=== PATIENT | female | born 1970 | race African-American/Black ===

== ENCOUNTER 2017-04-22 13:06 | Emergency (ER) | payer OTHER ==
[2017-04-22 13:08] VITALS: BP 236/111; PULSE 88; RESP 16; TEMP 97.9; O2SAT 95
--- NOTE | 2017-04-22 13:35 | PD ---
HPI Chief Complaint: GI Complaint Time Seen by Provider: 13:35 Travel History International Travel<30 days: No Contact w/Intl Traveler<30days: No Traveled to known affect area: No History of Present Illness HPI 46-year-old female of hypertension and hyperlipidemia presents to the emergency department for evaluation of constipation. The patient states that she has not had a bowel movement in about one week. States that for the last 3 days she feels as though she has a hard stool in her rectum and is complaining of pain. States that she has tried to have a bowel movement and when she wipes she does see stool on the toilet paper however is unable to fully pass the stool. States that she has tried at home remedies without resolution. The patient states that she typically has 2 bowel movements per week but this is the longest she is gone without a bowel movement. States she's never had constipation like this before. States that she began taking Lortab for knee pain about 2-3 months ago and was unaware that it caused constipation. She denies any fever, chills, nausea, vomiting, abdominal pain. No other complaints. PFSH Past Medical History Narrative Medical Hypertension Hyperlipidemia Chronic knee pain Social History Alcohol Use: No Tobacco Use: No Substance Use: No Allergies-Medications (Allergen,Severity, Reaction): Coded Allergies: No Known Allergies (Unverified , 04/22/17) Reported Meds & Prescriptions Reported Meds & Active Scripts Active Reported Bupropion HCl ER 12 HR (Bupropion HCl) 150 Mg Tab 150 Mg PO DAILY Atorvastatin (Atorvastatin Calcium) 40 Mg Tab 40 Mg PO HS Losartan (Losartan Potassium) 50 Mg Tab 50 Mg PO DAILY Proair Hfa 8.5 GM Inh (Albuterol Sulfate) 90 Mcg/Act Aer 2 Puff INH Q4-6H PRN 108 mcg/actuation Amlodipine (Amlodipine Besylate) 5 Mg Tab 5 Mg PO DAILY Labetalol (Labetalol HCl) 300 Mg Tab 300 Mg PO DAILY Famotidine 20 Mg Tab 20 Mg PO BID Mirtazapine 15 Mg Tab 15 Mg PO HS Lasix (Furosemide) 40 Mg Tab 40 Mg PO DAILY Lortab (Hydrocodone-Acetaminophen) 5-325 Mg Tab 1 Tab PO Q6H PRN Clonidine (Clonidine HCl) 0.1 Mg Tab 0.1 Mg PO TID Review of Systems Except as stated in HPI: all other systems reviewed are Neg Physical Exam Narrative GENERAL: Well-nourished and well-developed pleasant female patient in no acute distress. SKIN: Warm and dry. HEAD: Normocephalic and atraumatic. EYES: No injection, drainage, or hyphema noted. PERRLA. EOMI. ENT: No nasal drainage noted. Oropharynx is clear. NECK: Supple and the trachea is midline. CARDIOVASCULAR: Regular rate and rhythm. RESPIRATORY: Breath sounds are equal bilaterally with no accessory muscle use, wheezing, rhonchi, or crackles. GASTROINTESTINAL: Abdomen is soft, non-tender, and nondistended. RECTAL EXAM: There is hard stool noted in the rectum but I am unable to manually remove it as it is too high within the vault. No masses or tenderness , stool is brown. Performed in the presence of Gina ALICIA. MUSCULOSKELETAL: No obvious deformities, swelling, cyanosis, or ecchymosis is present throughout the upper and lower extremities. Patient has full range of motion without any signs of neurovascular compromise. NEUROLOGICAL: Awake, alert, and oriented. Normal speech and gait. Cranial nerves are grossly intact. Data Data Last Documented VS Vital Signs Date Time Temp Pulse Resp B/P Pulse Ox O2 Delivery O2 Flow Rate FiO2 04/22/17 13:08 97.9 88 16 236/111 95 Orders Enema (04/22/17 14:01) [facility] Medical Decision Making Medical Screen Exam Complete: Yes Emergency Medical Condition: Yes Differential Diagnosis Constipation versus opiate-induced constipation versus rectal fecal impaction Narrative Course 46-year-old female presents to the emergency department for evaluation of constipation and possible fecal impaction. Patient is afebrile, vital signs are stable. She's been taking opiates for the past 2 months which is likely the cause of her constipation. Attempted manual disimpaction without resolution. Patient is given a soapsuds enema with resolution of symptoms. She is instructed to stop taking opiates and to increase oral hydration. Advised outpatient follow-up. Patient verbalizes understanding and agreement with treatment plan. Diagnosis Primary Impression: Fecal impaction in rectum Referrals: Primary Care Physician Patient Instructions: Fecal Impaction (ED), General Instructions Additional Instructions: Stop taking opiate pain medications as this causes constipation. Follow-up with your Primary Care Physician. Return to the ED for any acute worsening of symptoms. Med/Other Pt SpecificInfo: No Change to Meds Disposition: 01 DISCHARGE HOME Condition: Stable Shayla Booker Apr 22, 2017 13:35
[2017-04-22] MEDS ORDERED: AMLO5TAB2 PO (14:10)
[2017-04-22] MEDS ORDERED: FAMO20TA2 PO (14:10)
[2017-04-22] MEDS ORDERED: LOSA50TA PO (14:10)
[2017-04-22] MEDS ORDERED: HYDR-3533 PO (14:10)
[2017-04-22] MEDS ORDERED: MIRTA15 PO (14:10)
[2017-04-22] MEDS ORDERED: BUPR150T5 PO (14:10)
[2017-04-22] MEDS ORDERED: LABE300T PO (14:10)
[2017-04-22] MEDS ORDERED: ALBUAER3 INH (14:10)
[2017-04-22] MEDS ORDERED: FURO1TAB60 PO (14:10)
[2017-04-22] MEDS ORDERED: ATOR40TA16 PO (14:10)
[2017-04-22] MEDS ORDERED: CLON0.1T PO (14:10)
== END 2017-04-22 15:26 | disposition home or self-care (01) ==
LOC: NEPD 13:06
DX: K56.41 Fecal impaction (principal); I10 Essential (primary) hypertension; E78.5 Hyperlipidemia, unspecified; Z79.899 Other long term (current) drug therapy
CPT/HCPCS: 99283

== ENCOUNTER 2017-07-16 17:26 | Emergency (ER) | payer MEDICARE, OTHER ==
[~2017-07-16 17:26] MED LIST: ALBUAER3 INH; AMLO5TAB2 PO; ATOR40TA16 PO; BUPR150T5 PO; CLON0.1T PO; FAMO20TA2 PO; FURO1TAB60 PO; HYDR-3533 PO; LABE300T PO; LOSA50TA PO; MIRTA15 PO
--- NOTE | 2017-07-16 18:01 | PD ---
Physical Exam Time Seen by Provider: 18:00 Narrative History of HTN. BP has been more elevated today. Reports frontal headache with slight blurred vision. Did not take 2pm dose of clonidine. Denies any focal deficits or weakness. No other symptoms to report. Data Data Last Documented VS Vital Signs Date Time Temp Pulse Resp B/P (MAP) Pulse Ox O2 Delivery O2 Flow Rate FiO2 07/16/17 22:39 07/16/17 22:30 80 18 07/16/17 21:03 97 Room Air 07/16/17 19:26 99.4 Orders Orders Complete Blood Count With Diff (07/16/17 18:02) Basic Metabolic Panel (Bmp) (07/16/17 18:02) Urinalysis - C+S If Indicated (07/16/17 18:02) Electrocardiogram (07/16/17 ) Iv Access Insert/Monitor (07/16/17 19:50) Labetalol Inj (Trandate Inj) (07/16/17 20:00) Ct Brain W/O Iv Contrast(Rout) (07/16/17 ) Clonidine (Catapres) (07/16/17 21:00) Labs Laboratory Tests Test 07/16/17 18:35 07/16/17 18:40 White Blood Count 10.3 TH/MM3 Red Blood Count 5.11 MIL/MM3 Hemoglobin 14.1 GM/DL Hematocrit 42.9 % Mean Corpuscular Volume 84.0 FL Mean Corpuscular Hemoglobin 27.6 PG Mean Corpuscular Hemoglobin Concent 32.9 % Red Cell Distribution Width 14.3 % Platelet Count 344 TH/MM3 Mean Platelet Volume 7.5 FL Neutrophils (%) (Auto) 69.3 % Lymphocytes (%) (Auto) 24.0 % Monocytes (%) (Auto) 5.7 % Eosinophils (%) (Auto) 0.6 % Basophils (%) (Auto) 0.4 % Neutrophils # (Auto) 7.1 TH/MM3 Lymphocytes # (Auto) 2.5 TH/MM3 Monocytes # (Auto) 0.6 TH/MM3 Eosinophils # (Auto) 0.1 TH/MM3 Basophils # (Auto) 0.0 TH/MM3 CBC Comment DIFF FINAL Differential Comment Blood Urea Nitrogen 6 MG/DL Creatinine 0.80 MG/DL Random Glucose 84 MG/DL Calcium Level 9.2 MG/DL Sodium Level 136 MEQ/L Potassium Level 3.4 MEQ/L Chloride Level 100 MEQ/L Carbon Dioxide Level 27.5 MEQ/L Anion Gap 9 MEQ/L Estimat Glomerular Filtration Rate 94 ML/MIN Urine Color LIGHT-YELLOW Urine Turbidity CLEAR Urine pH 7.5 Urine Specific [place] 1.006 Urine Protein NEG mg/dL Urine Glucose (UA) NEG mg/dL Urine Ketones NEG mg/dL Urine Occult Blood NEG Urine Nitrite NEG Urine Bilirubin NEG Urine Urobilinogen LESS THAN 2.0 MG/DL Urine Leukocyte Esterase NEG Urine RBC 1 /hpf Urine WBC LESS THAN 1 /hpf Urine Squamous Epithelial Cells <1 /hpf Urine Bacteria RARE /hpf Microscopic Urinalysis Comment CULT NOT INDICATED MDM Medical Record Reviewed: Yes Supervised Visit with SUGEY: No Scripts Amlodipine (Amlodipine) 10 Mg Tab 10 MG PO DAILY for Blood Pressure Management, #30 TAB 0 Refills Prov: Jada Fletcher 07/16/17 Condition: Stable Lizette Dangelo Jul 16, 2017 18:01
[2017-07-16 19:26] VITALS: BP 222/143; PULSE 88; RESP 18; TEMP 99.4; O2SAT 95
[2017-07-16 19:30] LABS: BACTERIA, URINE RARE /hpf; BLOOD, URINE NEG (NEG); COMMENT (UR) CULT NOT INDICATED; CULTURE IF INDICATED CULT NOT INDICATED; GLUCOSE,URINE NEG (NEG); KETONE, URINE NEG (NEG); NITRITE,URINE NEG (NEG); PH, URINE 7.5 (5.0-8.5); SQUAMOUS EPITHELIAL CELL URINE <1 /hpf (0-5); URINE COLOR LIGHT-YELLOW (YELLW/STRAW)
[2017-07-16 19:45] LABS: AUTOMATED NEUTROPHIL # 7.1 TH/MM3 (1.8-7.7); BASOPHIL % 0.4 % (0.0-2.0); EOSINOPHIL # 0.1 TH/MM3 (0-0.4); EOSINOPHIL % 0.6 % (0.0-4.0); HEMATOCRIT 42.9 % (35.0-46.0); HEMO FLAGS DIFF FINAL; LYMPHOCYTE # 2.5 TH/MM3 (1.0-4.8); MEAN CORPUSCULAR HEMOGLOBIN 27.6 PG (27.0-34.0); MEAN CORPUSCULAR HGB CONC 32.9 % (32.0-36.0); MONO % 5.7 % (0.0-8.0); NEUT % 69.3 % (16.0-70.0); PLATELET COUNT 344 TH/MM3 (150-450); RED BLOOD COUNT 5.11 MIL/MM3 (4.00-5.30); RED CELL DISTRIBUTION WIDTH 14.3 % (11.6-17.2); WHITE BLOOD COUNT 10.3 TH/MM3 (4.0-11.0)
[2017-07-16] MEDS ORDERED: RISP3TAB2 PO (19:46)
[2017-07-16] MEDS ORDERED: FLUO1TAB3 PO (19:46)
[2017-07-16] MEDS ORDERED: TRIH5TAB2 PO (19:46)
--- NOTE | 2017-07-16 19:52 | PD ---
HPI Chief Complaint: Hypertension Time Seen by Provider: 19:43 Travel History International Travel<30 days: No Contact w/Intl Traveler<30days: No History of Present Illness HPI 46-year-old female presents to the emergency department for evaluation of hypertension. Patient has history of hypertension, sleep apnea, asthma, COPD, borderline diabetes. She states that she went to see her hypertensive doctor this morning who found that her blood pressure was quite elevated with systolic of 260. Patient is on multiple antihypertensives. She states that the EMS was called at that time and she declined transportation due to issues with her granddaughter getting home. Her blood pressure was down to 180 systolic an ambulance. However, she started having a headache this evening and checked her blood pressure again which was 220 systolic. She states that she called EMS again and came to the emergency department. The patient states she's had this headache before when her blood pressure is high, but "it scares me". Patient denies any chest pain. She reports chronic shortness of breath with her COPD, but this is not new or worse than normal. Patient denies abdominal pain. No vomiting or diarrhea. Patient developed her blood pressure medications this morning, did not take her 2 PM dose of clonidine. PFSH Past Medical History Asthma: Yes Depression: Yes High Cholesterol: Yes COPD: Yes Diabetes: Yes ("BORDERLINE") Patient Takes Glucophage: No Diminished Hearing: No GERD: Yes Hypertension: Yes Sleep Apnea: Yes ?: Not Tubal Ligation: Yes Past Surgical History Cholecystectomy: Yes Hysterectomy: Yes Social History Alcohol Use: No Tobacco Use: Yes (15 CIGARETTES A DAY) Substance Use: No Allergies-Medications (Allergen,Severity, Reaction): Coded Allergies: No Known Allergies (Unverified , 04/22/17) Reported Meds & Prescriptions Reported Meds & Active Scripts Active Reported Trihexyphenidyl (Trihexyphenidyl HCl) 5 Mg Tab 5 Mg PO QID Risperidone 3 Mg Tab 3 Mg PO DAILY Fluoxetine (Fluoxetine HCl) 20 Mg Tab 20 Mg PO DAILY Bupropion HCl ER 12 HR (Bupropion HCl) 150 Mg Tab 150 Mg PO DAILY Atorvastatin (Atorvastatin Calcium) 40 Mg Tab 40 Mg PO HS Losartan (Losartan Potassium) 50 Mg Tab 50 Mg PO DAILY Proair Hfa 8.5 GM Inh (Albuterol Sulfate) 90 Mcg/Act Aer 2 Puff INH Q4-6H PRN 108 mcg/actuation Amlodipine (Amlodipine Besylate) 5 Mg Tab 5 Mg PO DAILY Labetalol (Labetalol HCl) 300 Mg Tab 300 Mg PO DAILY Famotidine 20 Mg Tab 20 Mg PO BID Mirtazapine 15 Mg Tab 15 Mg PO HS Lortab (Hydrocodone-Acetaminophen) 5-325 Mg Tab 1 Tab PO Q6H PRN Clonidine (Clonidine HCl) 0.1 Mg Tab 0.1 Mg PO TID Review of Systems Except as stated in HPI: all other systems reviewed are Neg Physical Exam Narrative GENERAL: Well-nourished, well-developed female patient, afebrile. SKIN: Focused skin assessment warm/dry. HEAD: Normocephalic. Atraumatic. EYES: No scleral icterus. No injection or drainage. NECK: Supple, trachea midline. No JVD or lymphadenopathy. CARDIOVASCULAR: Regular rate and rhythm without murmurs, gallops, or rubs. Bilateral radial and pedal pulses are 2+ RESPIRATORY: Breath sounds equal bilaterally. No accessory muscle use. Lungs sounds are clear to auscultation. GASTROINTESTINAL: Abdomen soft, non-tender, nondistended. MUSCULOSKELETAL: No cyanosis, or edema. BACK: Nontender without obvious deformity. No CVA tenderness. Data Data Last Documented VS Vital Signs Date Time Temp Pulse Resp B/P (MAP) Pulse Ox O2 Delivery O2 Flow Rate FiO2 07/16/17 21:03 85 20 186/118 (140) 97 Room Air 07/16/17 19:26 99.4 Orders Orders Complete Blood Count With Diff (07/16/17 18:02) Basic Metabolic Panel (Bmp) (07/16/17 18:02) Urinalysis - C+S If Indicated (07/16/17 18:02) Electrocardiogram (07/16/17 ) Iv Access Insert/Monitor (07/16/17 19:50) Labetalol Inj (Trandate Inj) (07/16/17 20:00) Ct Brain W/O Iv Contrast(Rout) (07/16/17 ) Clonidine (Catapres) (07/16/17 21:00) Labs Laboratory Tests Test 07/16/17 18:35 07/16/17 18:40 White Blood Count 10.3 TH/MM3 Red Blood Count 5.11 MIL/MM3 Hemoglobin 14.1 GM/DL Hematocrit 42.9 % Mean Corpuscular Volume 84.0 FL Mean Corpuscular Hemoglobin 27.6 PG Mean Corpuscular Hemoglobin Concent 32.9 % Red Cell Distribution Width 14.3 % Platelet Count 344 TH/MM3 Mean Platelet Volume 7.5 FL Neutrophils (%) (Auto) 69.3 % Lymphocytes (%) (Auto) 24.0 % Monocytes (%) (Auto) 5.7 % Eosinophils (%) (Auto) 0.6 % Basophils (%) (Auto) 0.4 % Neutrophils # (Auto) 7.1 TH/MM3 Lymphocytes # (Auto) 2.5 TH/MM3 Monocytes # (Auto) 0.6 TH/MM3 Eosinophils # (Auto) 0.1 TH/MM3 Basophils # (Auto) 0.0 TH/MM3 CBC Comment DIFF FINAL Differential Comment Blood Urea Nitrogen 6 MG/DL Creatinine 0.80 MG/DL Random Glucose 84 MG/DL Calcium Level 9.2 MG/DL Sodium Level 136 MEQ/L Potassium Level 3.4 MEQ/L Chloride Level 100 MEQ/L Carbon Dioxide Level 27.5 MEQ/L Anion Gap 9 MEQ/L Estimat Glomerular Filtration Rate 94 ML/MIN Urine Color LIGHT-YELLOW Urine Turbidity CLEAR Urine pH 7.5 Urine Specific [place] 1.006 Urine Protein NEG mg/dL Urine Glucose (UA) NEG mg/dL Urine Ketones NEG mg/dL Urine Occult Blood NEG Urine Nitrite NEG Urine Bilirubin NEG Urine Urobilinogen LESS THAN 2.0 MG/DL Urine Leukocyte Esterase NEG Urine RBC 1 /hpf Urine WBC LESS THAN 1 /hpf Urine Squamous Epithelial Cells <1 /hpf Urine Bacteria RARE /hpf Microscopic Urinalysis Comment CULT NOT INDICATED MDM Medical Decision Making Medical Screen Exam Complete: Yes Emergency Medical Condition: Yes Medical Record Reviewed: Yes Interpretation(s) ct brain - CONCLUSION: No acute disease. Differential Diagnosis Hypertension versus hypertensive emergency versus intracranial abnormality Narrative Course 46-year-old female presents to the emergency department for evaluation of hypertension. Patient with headache, but otherwise feels well. EKG, CBC, BMP, UA, CT of the brain are ordered and pending. Patient is given labetalol 10 mg IV. EKG shows SR, HR 86, no acute ST changes. CBC is unremarkable. BMP shows no acute abnormality. UA is negative. CT of the brain shows no acute disease. Patient is also given her clonidine 0.1 mg PO. Recheck BP is 185/113. Patient states she feels much better. Headache is resolved. She states she is hungry would like to go home. Instructed her to increase her amlodipine from 5 mg daily to 10 mg daily. She agrees with this. She states she has appointment her sheet heater on July 19. She is to return here for any acute worsening of symptoms. She verbalizes agreement and understanding. The patient was discharged in stable condition with instructions, including return instructions and follow up instructions. Diagnosis Primary Impression: Hypertension Qualified Codes: I10 - Essential (primary) hypertension Referrals: Primary Care Physician call for appointment Patient Instructions: Chronic Hypertension (ED), General Instructions Additional Instructions: Increase your amlodipine from 5 mg daily to 10 mg daily. I will give you a new prescription for 10 mg tablets to take daily. Follow-up with your primary care physician and sheet heater. Return to the emergency department for any acute worsening of symptoms. Med/Other Pt SpecificInfo: Prescription(s) given Scripts Amlodipine (Amlodipine) 10 Mg Tab 10 MG PO DAILY for Blood Pressure Management, #30 TAB 0 Refills Prov: Jada Fletcher 07/16/17 Disposition: 01 DISCHARGE HOME Condition: Stable Jada Fletcher Jul 16, 2017 19:51
[2017-07-16] MEDS ORDERED: LABETALOL HCL 100 MG/20 ML VIAL IV PUSH ONE (20:00)
[2017-07-16 20:07] LABS: BICARBONATE 27.5 MEQ/L (21.0-32.0); POTASSIUM 3.4 MEQ/L (3.5-5.1)
[2017-07-16 20:26] VITALS: BP 202/121; PULSE 86; RESP 20; O2SAT 96
--- NOTE | 2017-07-16 20:59 | RADRPT ---
EXAM DATE/TIME: 07/16/2017 20:03 [facility] COMPARISON: No previous studies available for comparison. INDICATIONS : Patient complains of headache. RADIATION DOSE: 35.86 CTDIvol (mGy) MEDICAL HISTORY : Hypertension. Chronic obstructive pulmonary disease. Diabetes mellitus type 1. SURGICAL HISTORY : Cholecystectomy. Hysterectomy. ENCOUNTER: Initial ACUITY: 1 day PAIN SCALE: 9/10 LOCATION: cranial TECHNIQUE: Multiple contiguous axial images were obtained of the head. Using automated exposure control and adj ustment of the mA and/or kV according to patient size, radiation dose was kept as low as reasonably a chievable to obtain optimal diagnostic quality images. DICOM format image data is available electro nically for review and comparison. FINDINGS: CEREBRUM: The ventricles are normal for age. No evidence of midline shift, mass lesion, hemorrhage or acute in farction. No extra-axial fluid collections are seen. POSTERIOR FOSSA: The cerebellum and brainstem are intact. The 4th ventricle is midline. The cerebellopontine angle i s unremarkable. EXTRACRANIAL: The visualized portion of the orbits is intact. SKULL: The calvaria is intact. No evidence of skull fracture. CONCLUSION: No acute disease. Cuco Gaxiola MD on July 16, 2017 at 20:57 Board Certified Radiologist. This report was verified electronically.
[2017-07-16] MEDS ORDERED: cloNIDine HCL 0.1 MG TAB PO ONE (21:00)
[2017-07-16 21:03] VITALS: BP 186/118; PULSE 85; RESP 20; O2SAT 97
[2017-07-16] MEDS ORDERED: AMLO10TA2 PO (21:49)
[2017-07-16 22:30] VITALS: BP 182/101; PULSE 80; RESP 18
--- NOTE | 2017-07-17 08:45 | EKG ---
Date Performed: 07/16/2017 Time Performed: 20:44:50 PTAGE: 46 years EKG: Sinus rhythm NONSPECIFIC T-WAVE ABNORMALITY BORDERLINE ECG NO PREVIOUS TRACING DOCTOR: Kim Zimmerman Interpretating Date/Time 07/17/2017 08:44:49
== END 2017-07-16 22:39 | disposition home or self-care (01) ==
LOC: NEPC 17:26
DX: I10 Essential (primary) hypertension (principal); R51 Headache; R94.31 Abnormal electrocardiogram [ECG] [EKG]; G47.30 Sleep apnea, unspecified; J44.9 Chronic obstructive pulmonary disease, unspecified; R73.03 Prediabetes; F32.9 Major depressive disorder, single episode, unspecified; E78.00 Pure hypercholesterolemia, unspecified; F17.210 Nicotine dependence, cigarettes, uncomplicated
CPT/HCPCS: 70450; 80048; 81001; 85025; 93005; 96374